=== PATIENT | female | born 1995 | race Caucasian/White ===

== ENCOUNTER 2017-11-05 13:59 | Outpatient (CLI) | payer MEDICAID ==
--- NOTE | 2017-11-05 19:24 | XRAY Report ---
DATE OF SERVICE: 11/05/2017 COMPLETE CERVICAL SPINE: 11/05/2017 CLINICAL INDICATION: Chronic neck pain. AP, lateral, oblique, odontoid views of the cervical spine demonstrate normal height of the vertebral bodies. There is reversal of the normal cervical lordosis. There is no evidence of fracture or subluxation. The prevertebral soft tissues are unremarkable. IMPRESSION: Reversal of the normal cervical lordosis. Otherwise normal cervical spine. TD: 11/05/2017 20:23
== END 2017-11-05 14:00 | disposition home or self-care (01) ==
LOC: DI 13:59
PROVIDERS: ATTEND Nurse Practitioner Family
DX: M54.2 Cervicalgia (principal)
CPT/HCPCS: 72050

== ENCOUNTER 2017-12-19 13:11 | Emergency (ER) | payer MEDICAID ==
[2017-12-19 13:48] LABS: BILIRUBIN,URINE NEGATIVE (NEGATIVE); GLUCOSE, URINE (UA) NEGATIVE (NEGATIVE); KETONES,URINE (UA) NEGATIVE (NEGATIVE); LEUKOCYTE ESTERASE, URINE NEGATIVE (NEGATIVE); NITRITE,URINE NEGATIVE (NEGATIVE); OCCULT BLOOD,URINE NEGATIVE (NEGATIVE); PROTEIN,URINE NEGATIVE (NEGATIVE); UROBILINOGEN,URINE 0.2 (NORMAL) E.U./dL (NORMAL)
[2017-12-19 13:50] LABS: CLARITY,URINE CLEAR (CLEAR); HCG UR QUAL NEGATIVE
--- NOTE | 2017-12-19 15:40 | ED Physician Documentation ---
History of Present Illness - Stated complaint Stated Complaint: Nausea/not sleeping - Chief complaint Chief Complaint: General - History obtained from History obtained from: Patient, Family - History of Present Illness Timing: How many days ago (3) Pain level max: 4 Pain level now: 3 Improved by: nothing Worsened by: nothing - Additonal information Additional information: 22 yo F with history of IBS and anxiety. Has had nausea without vomiting for the past 3 days. No fevers. No diarrhea, no constipation. No . Started nuvaring 12/03/17. States sexually active, but no changes in partners. No vaginal bleeding, discharge. LLQ abd pain. Similar symptoms a few years ago when she was diagnosed with IBS States had an injury in her L ankle/foot as a child and occasionally has swelling and tingling to the L foot. States yesterday her feet were red and swollen. normal today. also has a headache today. Similar to prior headaches. Gradual onset. Has not taken anything for this. Review of Systems Ten Systems: 10 systems reviewed and negative Constitutional: denies: Fever, Chills Ears: denies: Ear pain Nose: denies: Rhinorrhea / runny nose, Congestion Throat: denies: Sore throat Cardiac: denies: Chest pain / pressure Respiratory: denies: Cough, Wheezing GI: denies: Vomiting, Constipation, Diarrhea, Hematemesis : denies: Discharge (no itching, bleeding.), Now EGA Skin: denies: Rash Musculoskeletal: denies: Neck pain, Back pain Neurologic: reports: Headache (chronic and unchanged) PD PAST MEDICAL HISTORY - Past Medical History Past Medical History: Yes Psych: Anxiety, Panic attacks - Past Surgical History Past Surgical History: No - Present Medications Home Medications: Ambulatory Orders Medication Instructions Recorded Confirmed Cyclobenzaprine [Flexeril] 10 mg PO TID PRN #20 tablet 06/11/16 HYDROcod/ACETAM 5/325 [[place] 5/325] 1 ea PO Q6H PRN #6 tablet 06/11/16 Ibuprofen [Motrin] 400 mg PO Q6H PRN #30 tablet 06/11/16 Lidocaine Patch 5% [Lidoderm Patch] 1 each TOP DAILY PRN #10 patch 06/11/16 Hydrocodone/Acetaminophen 1 - 2 each PO Q6H PRN #10 tablet 12/19/17 [Hydrocodon-Acetaminophen 5-325] - Allergies Allergies/Adverse Reactions: Allergies Allergy/AdvReac Type Severity Reaction Status Date / Time No Known Drug Allergies Allergy Verified 06/11/16 17:46 - Social History Does the pt smoke?: Yes Smoking Status: Current every day smoker Does the pt drink ETOH?: No Does the pt have substance abuse?: No - Immunizations Immunizations are current?: Yes PD ED PE NORMAL - Vitals Vital signs reviewed: Yes - General General: Alert and oriented X 3, No acute distress - HEENT HEENT: Moist mucous membranes - Neck Neck: Supple, no meningeal sign - Cardiac Cardiac: RRR, Strong equal pulses - Respiratory Respiratory: No respiratory distress, Clear bilaterally - Abdomen Abdomen: Soft, Non distended, Other (mild TTP LLQ, no peritoneal signs. o/w normal exam.) - Female Female : Pt declined (does not want a pelvic exam today. 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, No motor deficit, No sensory deficit, Normal speech - Psych Psych: Normal mood, Normal affect Results - Vitals Vitals: Vital Signs - 24 hr 12/19/17 12/19/17 13:21 17:32 Temperature 36.2 C L 37.0 C Heart Rate 102 H 62 Respiratory 18 20 Rate Blood Pressure 147/90 H 155/94 H O2 Saturation 99 98 Oxygen O2 Source Room air - Labs Labs: Laboratory Tests 12/19/17 13:34 Urine Color YELLOW Urine Clarity CLEAR Urine pH 6.0 Ur Specific [place] 1.015 Urine Protein NEGATIVE Urine Glucose (UA) NEGATIVE Urine Ketones NEGATIVE Urine Occult Blood NEGATIVE Urine Nitrite NEGATIVE Urine Bilirubin NEGATIVE Urine Urobilinogen 0.2 (NORMAL) Ur Leukocyte Esterase NEGATIVE Ur Microscopic Review NOT INDICATED Urine Culture Comments NOT INDICATED Urine HCG, Qual NEGATIVE - Rads (name of study) pelvic US Radiology: Prelim report reviewed, EMP read contemporaneously, See rad report ( Normal) PD MEDICAL DECISION MAKING - ED course Complexity details: reviewed results, re-evaluated patient, considered differential, d/w patient, d/w family ED course: Patient is a 22-year-old female who presents to the emergency department with multiple complaints, the first is a headache that has been ongoing, this resolved in the emergency department after ibuprofen administration. The second is chronic inflammation in her bilateral feet that also improved. No evidence of cellulitis or infection. No evidence of fracture. The other complaint is lower abdominal pain, unclear etiology. Negative pelvic ultrasound. She does not want a pelvic examination today. She also refuses blood work. She does understand that this could lead to delay in diagnosis and accepts these risks. We will trial her on pain medication for the next 2-3 days and see how she progresses. She will return sooner if she worsens. Patient counseled regarding signs and symptoms for which I believe and urgent re -evaluation would be necessary. Patient with good understanding of and agreement to plan and is comfortable going home at this time This document was made in part using voice recognition software. While efforts are made to proofread this document, sound alike and grammatical errors may occur. Departure - Departure Disposition: 01 Home, Self Care Clinical Impression: Abdominal pain Qualifiers: Abdominal location: left lower quadrant Qualified Code(s): R10.32 - Left lower quadrant pain Condition: Good Instructions: ED Abdominal Pain Unkn Cause Follow-Up: Rosanna Amin ARNP [Primary Care Provider] - Within 3 Days Prescriptions: Hydrocodone/Acetaminophen [Hydrocodon-Acetaminophen 5-325] 1 - 2 each PO Q6H PRN #10 tablet PRN Reason: pain Comments: Return if you worsen. The cause of your symptoms is unclear today. If you fail to improve over the next 2-3 days, I would strongly recommend that you consider blood work as well as a pelvic exam and possible further imaging. Do not drink alcohol or drive while on narcotic pain medicine. Note that many narcotic pain relievers also contain tylenol/acetaminophen. Please ensure that your total dose of acetaminophen from all sources does not exceed 3 grams (3000mg) per day. You may constipated on this medication, take a stool softener such as "Colace" twice a day while you are on it. Also recommend a lbyg-vna-yxtrngc laxative such as senna or MiraLAX any day that you do not have a bowel movement. If you received narcotic pain medication in the emergency department, do not drive or operate machinery for the next 24 hours. Discharge Date/Time: 12/19/17 17:42
[2017-12-19] MEDS ORDERED: IBUPROFEN 800 MG TABLET PO STA (15:55)
--- NOTE | 2017-12-19 17:26 | Ultrasound Preliminary Report ---
Exam: US PELVIC NON OB W/DOPPLER IMPRESSION: Normal pelvic ultrasound. [facility] SITE ID: [id number]
--- NOTE | 2017-12-19 17:26 | Ultrasound Report ---
REVISED: REPORT ORIGINALLY SIGNED ON 12/19/2017@1726; ORDERS LINKED ON 2017 jll EXAM: PELVIC ULTRASOUND WITH DOPPLER EXAM DATE: 12/19/2017 05:02 PM. CLINICAL HISTORY: L pelvic pain x 3 days. COMPARISON: None. TECHNIQUE: Realtime transabdominal pelvic scan performed to identify the uterus and adnexa and as an overview of other pelvic structures, followed by transvaginal scan to provide greater detail of the uterus and adnexa, with static image documentation. Doppler images obtained. FINDINGS Uterus: 7 x 2.8 x 3.7 cm, volume 37.9 cc. Anteverted position. Normal overall size and echotexture. Masses: None. Endometrium: 6.2 mm. Normal. Cervix: Unremarkable. Right Ovary: 3.2 x 1.4 x 2.5 cm, volume 5.8 cc. Normal echotexture and blood flow. Left Ovary: 2.8 x 1.3 x 1.7 cm, volume 3.2 cc. Normal echotexture and blood flow. Free Fluid: None. Other: None. IMPRESSION: Normal pelvic ultrasound. [facility] Referring Provider Line: [phone] SITE ID: [id number]
[2017-12-19] MEDS ORDERED: HYDROcod/ACETAM 5/325 MG TABLET PO STA (17:29)
[2017-12-19 17:33] VITALS: BP 155/94
== END 2017-12-19 17:42 | disposition home or self-care (01) ==
LOC: ED 13:11
DX: R10.32 Left lower quadrant pain (principal); F17.200 Nicotine dependence, unspecified, uncomplicated
CPT/HCPCS: 76830; 76856; 81003; 81025; 93975; 99283; 99284; A9270; 80053; 81001; 83690; 85025; 87086

== ENCOUNTER 2018-12-30 09:00 | Emergency (ER) | payer MEDICAID ==
[2018-12-30] MEDS ORDERED: ONDANSETRON 4 MG/2 ML VIAL IVP STA (09:24)
[2018-12-30] MEDS ORDERED: SODIUM CHLORIDE 0.9% 1,000 ML IV ONE (09:24)
--- NOTE | 2018-12-30 09:27 | ED Physician Documentation ---
PD HPI ABD PAIN - Stated complaint Stated Complaint: ABD PX/VOMITING - Chief complaint Chief Complaint: Abd Pain - History obtained from History obtained from: Patient - History of Present Illness Timing - onset: How many weeks ago (more than one week) Timing - details: Gradual onset Quality: Cramping Location: LLQ Associated symptoms: Nausea Similar symptoms before: Diagnosis (History of IBS.) - Additional information Additional information: The patient is a 23-year-old female who presents with left lower quadrant abdominal pain. Her symptoms started more than 1 week ago, but have become more severe and more constant during the past 3 days. She describes waves of cramping abdominal pain. She has had nausea with dry heaves. She also reports chills, and episodic diarrhea. She denies dysuria. She has a history of inflammatory bowel syndrome, but denies history of similar symptoms in the past. Review of Systems Constitutional: reports: Chills Nose: denies: Congestion Throat: denies: Sore throat Cardiac: denies: Chest pain / pressure Respiratory: denies: Dyspnea, Cough GI: reports: Abdominal Pain, Nausea, Vomiting (dry heaves), Diarrhea (episodic) : denies: Dysuria Skin: denies: Rash Musculoskeletal: reports: Back pain (chronically). denies: Extremity pain Neurologic: denies: Headache PD PAST MEDICAL HISTORY - Past Medical History Cardiovascular: None Respiratory: None Neuro: None Endocrine/Autoimmune: None GI: Other (Inflammatory Bowel Syndrome) Psych: Anxiety, Panic attacks - Past Surgical History Past Surgical History: No - Present Medications Home Medications: Ambulatory Orders Medication Instructions Recorded Confirmed Ondansetron Odt [Zofran] 4 mg TL Q6H PRN #20 tablet 12/30/18 - Allergies Allergies/Adverse Reactions: Allergies Allergy/AdvReac Type Severity Reaction Status Date / Time No Known Drug Allergies Allergy Verified 12/30/18 09:09 - Social History Does the pt smoke?: Yes Smoking Status: Current every day smoker Does the pt drink ETOH?: No Does the pt have substance abuse?: No - Immunizations Immunizations are current?: Yes PD ED PE NORMAL - Vitals Vital signs reviewed: Yes (normal) - General General: Alert and oriented X 3, Well developed/nourished - HEENT HEENT: Atraumatic, Moist mucous membranes, Pharynx benign - Neck Neck: Supple, no meningeal sign, No adenopathy - Cardiac Cardiac: RRR, No murmur - Respiratory Respiratory: No respiratory distress, Clear bilaterally - Abdomen Abdomen: Normal bowel sounds, Soft, Other (Mild tenderness to palpation in the LLQ, without rebound or guarding.) - Back Back: No CVA TTP - Derm Derm: No rash - Extremities Extremities: No edema, No calf tenderness / cord - Neuro Neuro: Alert and oriented X 3, No motor deficit, Normal speech Results - Vitals Vitals: Vital Signs - 24 hr 12/30/18 12/30/18 12/30/18 09:06 12:29 15:41 Temperature 36.4 C L 36.7 C 36.5 C Heart Rate 75 65 60 Respiratory 14 16 16 Rate Blood Pressure 129/82 H 125/78 120/71 O2 Saturation 99 100 100 Oxygen O2 Source Room air - Labs Labs: Laboratory Tests 12/30/18 12/30/18 12/30/18 09:40 09:47 09:47 WBC 10.3 RBC 4.58 Hgb 14.2 Hct 41.4 MCV 90.4 MCH 31.1 H MCHC 34.4 RDW 12.1 Plt Count 211 MPV 8.7 Neut # (Auto) 6.8 H Lymph # (Auto) 2.8 [place] # (Auto) 0.5 Eos # (Auto) 0.0 Baso # (Auto) 0.1 Absolute Nucleated RBC 0.00 Nucleated RBC % 0.0 Manual Slide Review Indicated Sodium 129 L Potassium 3.8 Chloride 98 L Carbon Dioxide 22 Anion Gap 9.0 BUN 10 Creatinine 0.5 Estimated GFR (MDRD) 154 Glucose 92 Calcium 9.2 Total Bilirubin 0.7 AST 22 ALT 18 Alkaline Phosphatase 46 Total Protein 7.1 Albumin 4.3 Globulin 2.8 Albumin/Globulin Ratio 1.5 Lipase 34 HCG, Quant Urine Color YELLOW Urine Clarity CLEAR Urine pH 7.5 Ur Specific [place] 1.010 Urine Protein NEGATIVE Urine Glucose (UA) NEGATIVE Urine Ketones NEGATIVE Urine Occult Blood NEGATIVE Urine Nitrite NEGATIVE Urine Bilirubin NEGATIVE Urine Urobilinogen 0.2 (NORMAL) Ur Leukocyte Esterase NEGATIVE Ur Microscopic Review NOT INDICATED Urine Culture Comments NOT INDICATED Urine HCG, Qual POSITIVE 12/30/18 09:47 WBC RBC Hgb Hct MCV MCH MCHC RDW Plt Count MPV Neut # (Auto) Lymph # (Auto) [place] # (Auto) Eos # (Auto) Baso # (Auto) Absolute Nucleated RBC Nucleated RBC % Manual Slide Review Sodium Potassium Chloride Carbon Dioxide Anion Gap BUN Creatinine Estimated GFR (MDRD) Glucose Calcium Total Bilirubin AST ALT Alkaline Phosphatase Total Protein Albumin Globulin Albumin/Globulin Ratio Lipase HCG, Quant 25130.00 Urine Color Urine Clarity Urine pH Ur Specific [place] Urine Protein Urine Glucose (UA) Urine Ketones Urine Occult Blood Urine Nitrite Urine Bilirubin Urine Urobilinogen Ur Leukocyte Esterase Ur Microscopic Review Urine Culture Comments Urine HCG, Qual - Rads (name of study) CT abd/pelvis Radiology: Prelim report reviewed, EMP read contemporaneously, See rad report (1) No urinary tract stones or obstruction. 2) No acute inflammatory process demonstrated. 3) Mild nonspecific fundal endometrial fullness. Question normal variation versus endometrial polyp or fibroid. Prior pelvic ultrasound 12/19/2017 was unremarkable. Consider serum beta hCG to exclude early or pelvic ultrasound if clinically warranted.) pelvic U/S Radiology: See rad report (Single viable intrauterine at estimated gestational age 6 weeks 5 days, which is concordant with clinical dates. [place]- gestational hemorrhage 2.3 cm.) PD MEDICAL DECISION MAKING - ED course Complexity details: reviewed results, re-evaluated patient, considered differential, d/w patient, d/w family ED course: The patient's presentation with left lower quadrant abdominal pain is consistent with a newly diagnosed live intrauterine , estimated at 7 weeks gestation by ultrasound. The ultrasound also reveals a 2.3 cm. Gestational fluid collection, suggestive of hemorrhage. Because of the patient's history of inflammatory bowel syndrome, and a negative urine test, CT scan of the abdomen was initially performed. This revealed a thickened endometrial wall, without other CT abnormality. It should be noted that the patient's initial urine test was negative, but because of her missed menstrual period, history of a positive urine test at home, and the CT findings, a serum test was performed, revealing an elevated beta hCG above 65,000. I discussed the laboratory discrepancy with laboratory staff, who subsequently found that the negative urine test result was entered in error, and who then made a correction to the computer entry. Treatment in the emergency department included administration of morphine 4 mg IM and Zofran 4 mg sublingually. IV administration was not able to be a performed due to the patient's adamant refusal against IV placement. I discussed with her and her male plate hanger the results of the ultrasound, the importance of outpatient follow-up with OB, as well as potentially worrisome signs or symptoms that should prompt reevaluation in the emergency department. Departure - Departure Disposition: 01 Home, Self Care Clinical Impression: Vomiting of , First trimester Condition: Stable Instructions: ED Preg Morning Sickness Follow-Up: IRINA JUAN [Primary Care Provider] - [facility] [Provider Group] Prescriptions: Ondansetron Odt [Zofran] 4 mg TL Q6H PRN #20 tablet PRN Reason: Nausea / Vomiting Comments: You can use Tylenol as needed for pain. You can use Zofran as prescribed if needed for nausea. Drink plenty of fluids. Follow-up with hole digger operator within 2 weeks. Call to schedule appointment. Return to the emergency department if you develop persistent vomiting, increasing abdominal pain, or otherwise worsening symptoms. Discharge Date/Time: 12/30/18 15:42
[2018-12-30 09:48] LABS: BILIRUBIN,URINE NEGATIVE (NEGATIVE); GLUCOSE, URINE (UA) NEGATIVE (NEGATIVE); KETONES,URINE (UA) NEGATIVE (NEGATIVE); LEUKOCYTE ESTERASE, URINE NEGATIVE (NEGATIVE); NITRITE,URINE NEGATIVE (NEGATIVE); OCCULT BLOOD,URINE NEGATIVE (NEGATIVE); PH,URINE 7.5 PH (5.0-7.5); PROTEIN,URINE NEGATIVE (NEGATIVE); UROBILINOGEN,URINE 0.2 (NORMAL) E.U./dL (NORMAL)
[2018-12-30 09:49] LABS: CLARITY,URINE CLEAR (CLEAR)
[2018-12-30 10:00] LABS: BASOPHILS # (AUTO) 0.1 10^3/uL (0.0-0.1); BASOPHILS % (AUTO) 0.9 %; EOSINOPHILS % (AUTO) 0.2 %; HGB - HEMOGLOBIN 14.2 g/dL (12.0-16.0); LYMPHOCYTES # (AUTO) 2.8 10^3/uL (1.5-3.5); LYMPHOCYTES % (AUTO) 27.4 %; MEAN CORPUSCULAR HEMOGLOBIN 31.1 pg (27.0-31.0); MEAN CORPUSCULAR HGB CONC 34.4 g/dL (32.0-36.0); MEAN CORPUSCULAR VOLUME 90.4 fL (81.0-99.0); MEAN PLATELET VOLUME 8.7 fL (7.9-10.8); MONOCYTES # (AUTO) 0.5 10^3/uL (0.0-1.0); MONOCYTES % (AUTO) 5.1 %; NEUTROPHILS # (AUTO) 6.8 10^3/uL (1.5-6.6); NEUTROPHILS % (AUTO) 66.4 %; PLT - PLATELET COUNT 211 10^3/uL (130-450); RED BLOOD COUNT 4.58 10^6/uL (4.20-5.40); RED CELL DISTRIBUTION WIDTH 12.1 % (12.0-15.0); WHITE BLOOD COUNT 10.3 x10^3/uL (4.8-10.8)
[2018-12-30] MEDS ORDERED: ONDANSETRON ODT 4 MG TABLET TL STA (10:05)
[2018-12-30 10:06] LABS: ALBUMIN 4.3 g/dL (3.2-5.5); ALBUMIN/GLOBULIN RATIO 1.5 (1.0-2.2); BILIRUBIN,TOTAL 0.7 mg/dL (0.2-1.0); CALCIUM 9.2 mg/dL (8.5-10.3); CREATININE 0.5 mg/dL (0.4-1.0); TOTAL PROTEIN 7.1 g/dL (6.7-8.2)
--- NOTE | 2018-12-30 10:53 | CT Report ---
Reason: LLQ abd pain Procedure Date: 12/30/2018 Accession Number: [id number] / [id number] Procedure: CT - Abdomen/Pelvis WO CPT Code: FULL RESULT: EXAM: CT ABDOMEN AND PELVIS (CT KUB) EXAM DATE: 12/30/2018 10:25 AM. CLINICAL HISTORY: LLQ abd pain. COMPARISONS: PELVIC NON OB W/DOPPLER 12/19/2017 4:13 PM. TECHNIQUE: Routine axial helical CT imaging was performed through the abdomen and pelvis without IV contrast. Reconstructions: Coronal and sagittal. In accordance with CT protocol optimization, one or more of the following dose reduction techniques were utilized for this exam: automated exposure control, adjustment of mA and/or KV based on patient size, or use of iterative reconstructive technique. FINDINGS: Lung Bases: Unremarkable. Right Kidney/Ureter: No stones, hydronephrosis, or hydroureter. No perinephric fat stranding. Left Kidney/Ureter: No stones, hydronephrosis, or hydroureter. No perinephric fat stranding. Other Solid Organs: Noncontrast images of the solid organs are grossly unremarkable. Gallbladder/Bile Ducts: Unremarkable. Peritoneal Cavity: No free fluid, free air or amando adenopathy. Bowel is grossly unremarkable. Normal appendix. Pelvic Organs: No bladder stones or wall thickening. No adnexal abnormality evident on noncontrast CT. Mild nonspecific fundal endometrial fullness. Vasculature: Unremarkable. Other: None. IMPRESSION: 1. No urinary tract stones or obstruction. 2. No acute inflammatory process demonstrated. 3. Mild nonspecific fundal endometrial fullness. Question normal variation versus endometrial polyp or fibroid. Prior pelvic ultrasound 12/19/2017 was unremarkable. Consider serum beta hCG to exclude early or pelvic ultrasound if clinically warranted. [facility]
[2018-12-30] MEDS ORDERED: MORPHINE 2 MG/ML CARPUJECT IM STA (12:22)
--- NOTE | 2018-12-30 14:43 | Ultrasound Report ---
Reason: LLQ pain and HCG 65,000. Procedure Date: 12/30/2018 Accession Number: [id number] / [id number] Procedure: US - OB First Trimester CPT Code: FULL RESULT: EXAM: FIRST TRIMESTER OBSTETRIC ULTRASOUND (Less than 11 weeks) EXAM DATE: 12/30/2018 01:12 PM. CLINICAL HISTORY: LLQ pain and HCG 65,000. LMP: Unknown. COMPARISONS: None. TECHNIQUE: Transabdominal and transvaginal ultrasound examination with static image documentation. CLINICAL DATES: EGA 7 weeks 2 days with PEGGY 08/16/2019 based on LMP/ . ASSESSMENT: Gestational Sac: Single intrauterine. Mean gestational sac diameter: 19.8 mm = 6 weeks/3 days. Embryo: CRL (crown-rump length) 7.6 mm = 6 weeks/5 days. Cardiac activity: 115 beats per minute. Yolk sac: 2.1 mm. Amniotic fluid: Not accurately assessed at this gestational age. Early placenta: Not visible at this gestational age. Other: 2.3 x 0.7 x 2.2 perigestational fluid collection demonstrated. MATERNAL STRUCTURES: Uterus: Anteverted. Unremarkable. Cervix: Closed. Right Ovary/Adnexa: The ovary measures 3.1 x 2.1 x 2.7 cm, volume 9.2 cc. Unremarkable. Left Ovary/Adnexa: The ovary measures 2.4 x 1.6 x 1.4 cm, volume 2.8 cc. Unremarkable. Free Fluid: None. Other: None. IMPRESSION: 1. Single viable intrauterine at EGA 6 weeks 5 days with PEGGY 08/20/2019 based on crown-rump length, which is concordant with clinical dates. Perigestational hemorrhage 2.3 cm [facility]
[2018-12-30 15:41] VITALS: BP 120/71
[2018-12-30 16:06] LABS: HCG UR QUAL POSITIVE
== END 2018-12-30 15:42 | disposition home or self-care (01) ==
LOC: ED 09:00
DX: O21.0 Mild hyperemesis gravidarum (principal); Z3A.01 Less than 8 weeks gestation of pregnancy; F17.200 Nicotine dependence, unspecified, uncomplicated
CPT/HCPCS: 36415; 74176; 76801; 76817; 80053; 81003; 81025; 83690; 84702; 85025; 96372; 99283; Q0162; 81001; 87086

== ENCOUNTER 2020-11-08 09:01 | Inpatient (IN) | payer MEDICAID ==
[2020-11-08] MEDS ORDERED: METHYLERGONOVINE 0.2 MG/ML VIAL IM PRN (09:14)
[2020-11-08] MEDS ORDERED: ONDANSETRON 4 MG/2 ML VIAL IVP PRN (09:14)
[2020-11-08] MEDS ORDERED: fentaNYL 100 MCG/2 ML VIAL IVP PRN ×2 (09:14→13:43)
[2020-11-08] MEDS ORDERED: CARBOPROST TROMETHAMINE 250 MCG/ML AMP IM PRN (09:14)
[2020-11-08] MEDS ORDERED: OXYTOCIN 10 UNIT/ML VIAL IM PRN (09:14)
[2020-11-08] MEDS ORDERED: TRANEXAMIC ACID 1,000 MG in SODIUM CHLORIDE 0.9% 100ML 100 ML IV PRN (09:14)
[2020-11-08] MEDS ORDERED: OXYTOCIN/SODIUM CHLORIDE 500 ML IV PRN (09:14)
[2020-11-08] MEDS ORDERED: miSOPROStoL 200 MCG TABLET BC PRN (09:14)
[2020-11-08] MEDS ORDERED: LIDOCAINE-MPF 1% 30 ML VIAL ID PRN (09:14)
[2020-11-08] MEDS ORDERED: AMPICILLIN 2 GM in SODIUM CHLORIDE 0.9% MINIBAG 100 ML IV SCH ×2 (09:24→09:30)
[2020-11-08] MEDS ORDERED: OXYTOCIN 10 UNIT/ML VIAL ONE (09:30)
[2020-11-08] MEDS ORDERED: METHYLERGONOVINE 0.2 MG/ML VIAL ONE (09:30)
[2020-11-08] MEDS ORDERED: TRANEXAMIC ACID 1,000 MG/10 ML VIAL ONE (09:30)
[2020-11-08] MEDS ORDERED: OXYTOCIN/SODIUM CHLORIDE 500 ML IV ONE (09:30)
[2020-11-08] MEDS ORDERED: miSOPROStoL 200 MCG TABLET ONE (09:30)
[2020-11-08] MEDS ORDERED: CARBOPROST TROMETHAMINE 250 MCG/ML AMP IM ONE (09:31)
[2020-11-08 09:40] LABS: BASOPHILS % (AUTO) 0.4 %; EOSINOPHILS % (AUTO) 0.2 %; HGB - HEMOGLOBIN 11.7 g/dL (12.0-16.0); LYMPHOCYTES # (AUTO) 3.2 10^3/uL (1.5-3.5); LYMPHOCYTES % (AUTO) 29.1 %; MEAN CORPUSCULAR HEMOGLOBIN 24.7 pg (27.0-31.0); MEAN CORPUSCULAR HGB CONC 31.8 g/dL (32.0-36.0); MEAN CORPUSCULAR VOLUME 77.6 fL (81.0-99.0); MEAN PLATELET VOLUME 11.6 fL (7.9-10.8); MONOCYTES # (AUTO) 0.5 10^3/uL (0.0-1.0); MONOCYTES % (AUTO) 4.6 %; NEUTROPHILS # (AUTO) 7.2 10^3/uL (1.5-6.6); NEUTROPHILS % (AUTO) 65.4 %; PLT - PLATELET COUNT 206 10^3/uL (130-450); RED BLOOD COUNT 4.74 10^6/uL (4.20-5.40); RED CELL DISTRIBUTION WIDTH 15.4 % (12.0-15.0)
[2020-11-08] MEDS ORDERED: fentaNYL 100 MCG/2 ML VIAL ONE (09:44)
[2020-11-08] MEDS ORDERED: ROPIVACAINE 0.2% 200 MG/100 ML BAG EP ONE (09:44)
[2020-11-08 09:57] LABS: PLATELET ESTIMATE, MANUAL NORMAL (130-450,000) (NORMAL); PLATELET MORPHOLOGY NORMAL APPEARANCE (NORMAL); RBC MORPHOLOGY (MULTIPLE) NORMAL APPEARANCE (NORMAL)
[2020-11-08] MEDS ORDERED: LACTATED RINGERS 1,000 ML IV SCH ×3 (10:00→13:00)
--- NOTE | 2020-11-08 10:22 | ANESTHESIA ---
Pre-Anesthesia VS, & Labs - Diagnosis Active labor - Procedure vaginal delivery Height: 5 ft 8 in - NPO Other (labor) - Is Patient ?: Yes - Lab Results Current Lab Results: Laboratory Tests 11/08/20 09:35: WBC 11.0 H, RBC 4.74, Hgb 11.7 L, Hct 36.8 L, MCV 77.6 L, MCH 24.7 L, MCHC 31.8 L, RDW 15.4 H, Plt Count 206, MPV 11.6 H, Neut # (Auto) 7.2 H, Lymph # (Auto) 3.2, [place] # (Auto) 0.5, Eos # (Auto) 0.0, Baso # (Auto) 0.0, Absolute Nucleated RBC 0.00, Nucleated RBC % 0.0, Manual Slide Review Indicated, WBC Morphology NORMAL APPEARANCE, Platelet Estimate NORMAL (130-450,000), Platelet Morphology NORMAL APPEARANCE, RBC Morph Micro Appear NORMAL APPEARANCE Fish Bones: 11/08/20 09:35 Home Medications and Allergies Active Medications Carboprost Tromethamine (Carboprost Tromethamine 250 Mcg/Ml Amp) 250 mcg IM Q15M PRN PRN Reason: Step 4: Hemorrhage protocol Stop: 11/13/20 09:14 Fentanyl (Fentanyl 100 Mcg/2 Ml Vial) 50 mcg IVP Q1H PRN PRN Reason: PAIN Oxytocin/Sodium Chloride (Pitocin/Sodium Chloride) 500 mls @ 999 mls/hr IV PRN PRN; Protocol PRN Reason: POST- HEMORR PREVENTION Stop: 11/13/20 09:14 Tranexamic Acid 1,000 mg/ (Sodium Chloride) 110 mls @ 660 mls/hr IV .ONCE PRN PRN Reason: EBL >1200mL and within 3hr Stop: 11/13/20 09:14 Lactated Ringer's (Lr) 1,000 mls @ 150 mls/hr IV .Q6H40M [place] Ampicillin Sodium 2 gm/ Sodium (Chloride) 100 mls @ 100 mls/hr IV ONCE [place] Stop: 11/08/20 12:00 Ampicillin Sodium 1 gm/ Sodium (Chloride) 100 mls @ 200 mls/hr IV Q4H [place] Lidocaine HCl (Lidocaine-Mpf 1% 30 Ml Vial) 30 ml ID .ONCE PRN PRN Reason: PERINEAL REPAIR Stop: 11/13/20 09:14 Methylergonovine Maleate (Methylergonovine 0.2 Mg/Ml Vial) 0.2 mg IM .ONCE PRN PRN Reason: Step 2: Hemorrhage protocol Stop: 11/13/20 09:14 Misoprostol (Misoprostol 200 Mcg Tablet) 800 mcg BC .ONCE PRN PRN Reason: Step 3: Hemorrhage protocol Stop: 11/13/20 09:14 Ondansetron HCl (Ondansetron 4 Mg/2 Ml Vial) 4 mg IVP Q4H PRN PRN Reason: Nausea / Vomiting Oxytocin (Oxytocin 10 Unit/Ml Vial) 10 unit IM .ONCE PRN PRN Reason: Step one: If no IV access Stop: 11/13/20 09:14 Sodium Chloride (Sodium Chloride Flush 0.9% 10 Ml Syringe) 10 ml IVP PRN PRN PRN Reason: NEEDED PER PROVIDER ORDERS Sodium Chloride (Sodium Chloride Flush 0.9% 10 Ml Syringe) 10 ml IVP 0100,0900,1700 [place] Allergies/Adverse Reactions: Allergies Allergy/AdvReac Type Severity Reaction Status Date / Time No Known Drug Allergies Allergy Verified 12/30/18 09:09 Anes History & Medical History - Anesthetic History Anesthesia Complications: reports: No previous complications - Medical History Cardiovascular: reports: None Pulmonary: reports: None Gastrointestinal: reports: Other (Inflammatory Bowel Syndrome) Urinary: reports: None Neuro: reports: None Musculoskeletal: reports: Chronic back pain (stenosis, bulging disk) Endocrine/Autoimmune: reports: None Blood Disorders: reports: None Skin: reports: None Smoking Status: Current every day smoker Psychosocial: reports: No issues indicated History of Cancer?: No - Surgical History Gynecologic: Other (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
[2020-11-08] MEDS ORDERED: LIDOCAINE-PF 2% 10 ML AMP SUBQ ONE (10:39)
[2020-11-08] MEDS ORDERED: BUPIVACAINE 0.25% PF 30 ML VIAL SUBQ ONE (10:42)
[2020-11-08] MEDS ORDERED: LIDOCAINE 2%-EPI 1:100000 20 ML MDV SUBQ ONE (10:42)
[2020-11-08] MEDS ORDERED: LIDOCAINE MPF 2%-EPI 1:200000 20 ML VIAL ONE (10:45)
[2020-11-08] MEDS ORDERED: BUPIVACAINE 0.25% PF 30 ML VIAL ONE (10:45)
[2020-11-08] MEDS ORDERED: MIDAZOLAM 2 MG/2 ML VIAL ONE (11:14)
[2020-11-08] MEDS ORDERED: ONDANSETRON 4 MG/2 ML VIAL ONE (11:24)
[2020-11-08] MEDS ORDERED: ePHEDrine 50 MG/ML VIAL IVP ONE (11:27)
[2020-11-08] MEDS ORDERED: KETOROLAC 30 MG/ML VIAL ONE (11:58)
[2020-11-08] MEDS ORDERED: LACTATED RINGERS 1,000 ML IV ONE (12:05)
--- NOTE | 2020-11-08 12:15 | OPERATIVE REPORT ---
Operative Report - General Admit Date: 11/08/20 Procedure Date: 11/08/20 Planned Procedure: STAT PLTC/S Pre-Op Diagnosis: 39 weeks, bradycardia Procedure Performed: STAT PLTC/S Post Op Diagnosis: Same normal uterine vascularity - Procedure Note Primary Surgeon: Jefferson Mendieta MD Secondary Surgeon: Clarisa Vidal Anesthesia Provider: Ricardo Kinney CRNA Anesthesia Technique: Epidural Pathology: Placenta IV Fluids (mL): 1,300 Estimated Blood Loss (mL): 700 Urine Output (mL): 100 Indications: bradycardia
[2020-11-08] MEDS ORDERED: SODIUM CHLORIDE FLUSH 0.9% 10 ML SYRINGE IVP PRN (12:29)
[2020-11-08] MEDS ORDERED: diphenhydrAMINE 25 MG CAPSULE PO PRN (12:32)
[2020-11-08] MEDS: ACETAMINOPHEN 500 MG TABLET PO SCH ×2 (13:17→21:13)
[2020-11-08] MEDS: oxyCODONE 5 MG TABLET PO PRN ×3 (13:18→21:13)
[2020-11-08] MEDS ORDERED: NALOXONE 0.4 MG/ML VIAL IVP PRN (13:43)
[2020-11-08] MEDS ORDERED: HYDROmorphone 0.5 MG/0.5 ML SYRINGE IVP PRN (13:43)
[2020-11-08] MEDS ORDERED: MORPHINE 2 MG/ML CARPUJECT IVP PRN (13:43)
[2020-11-08] MEDS ORDERED: ATROPINE ABBOJECT 1 MG/10 ML SYRINGE IVP PRN (13:43)
[2020-11-08] MEDS ORDERED: AMPICILLIN 1 GM in SODIUM CHLORIDE 0.9% MINIBAG 100 ML IV SCH (14:00)
--- NOTE | 2020-11-08 14:27 | ANESTHESIA POST OP EVALUATION ---
Anesthesia Post Eval - Post Anesthesia Eval Vitals: Last Vital Signs Temp 36.2 C L 11/08/20 11:57 Pulse 80 11/08/20 12:25 Resp 16 11/08/20 12:25 BP 127/80 11/08/20 12:25 Pulse Ox 100 11/08/20 12:25 CV Function Including HR & BP: positive: Stable Pain Control: positive: Satisfactory Nausea & Vomiting: positive: Negative Mental Status: positive: Baseline Respiratory Status: Airway Patent Hydration Status: Satisfactory Anesthesia Complications: positive: None
[2020-11-08] MEDS: KETOROLAC 30 MG/ML VIAL IVP SCH ×2 (15:40→18:05)
[2020-11-08] MEDS ORDERED: SODIUM CHLORIDE FLUSH 0.9% 10 ML SYRINGE IVP SCH ×2 (17:00)
[2020-11-08] MEDS: HYDROmorphone 1 MG/ML CARPUJECT IVP PRN ×2 (18:23→23:00)
--- NOTE | 2020-11-08 20:18 | HISTORY & PHYSICAL EXAMINATION ---
DATE OF SERVICE: 11/08/2020 Physician: Jefferson Mendieta MD IDENTIFICATION: Patient is a 25-year-old, G3, P1, AB1 female. She states that she has an EDC of 14 November 2020; this makes her 39 weeks and 1 day. CHIEF COMPLAINT: Labor. HISTORY OF PRESENT ILLNESS: Patient states she has been avani off and on for the last week. These were occurring about every 10 minutes, last night they increased to every 7 minutes, and this morning they became very regular and very painful. She has been brought in by ambulance for evaluation. She has been seen at [facility] in [place], [place], for her entire OB care. We have at time of presentation no records. Historically, she gives a history of having had a post-delivery bleed roughly 2 days later. 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 PAST MEDICAL HISTORY: The patient denies any medical history. SURGICAL HISTORY: Positive for laparoscopy. ALLERGIES: NONE KNOWN. CURRENT MEDICATIONS: vitamins. The history was rather brief in its obtaining, as patient developed severe bradycardia which was down to the 80s and 90s. PHYSICAL EXAMINATION GENERAL: Well-developed, well-nourished, white female, in no acute distress. She has an epidural in place. HEART: Regular rate and rhythm without murmurs. LUNGS: Lung ojeda are clear without rales or wheezes. ABDOMEN: Gravid. She had initially external toco monitoring, but, because of difficulty maintaining heart rate/heart tone, a scalp electrode was placed. At time of placement, the cervix was 7 cm, 100% effaced, and about -1. There was no evidence of any membranes at time of examination, and the scalp electrode was placed directly on the head. Subsequent to this, the patient developed some drop in her baseline but was noted to have good variability; however, with time, she developed bradycardia, which was down first to the 90s, 80s, and finally to the 70s. At this point, a stat was called for. IMPRESSION: A 25-year-old G3, P1, AB1, female at 39 weeks and 2 days with bradycardia. The remainder of her history was unobtainable, as the chart from her previous OB care was not available. PLAN: Patient was consented both verbally and written for a STAT . This was performed. TD: 11/08/2020 18:11 POLO
[2020-11-08] MEDS: SODIUM CHLORIDE FLUSH 0.9% 10 ML SYRINGE IVP SCH (23:00)
[2020-11-09] MEDS: SODIUM CHLORIDE FLUSH 0.9% 10 ML SYRINGE IVP SCH ×2 (00:23→02:00)
[2020-11-09] MEDS: KETOROLAC 30 MG/ML VIAL IVP SCH ×2 (00:23→06:12)
[2020-11-09] MEDS: SODIUM CHLORIDE FLUSH 0.9% 10 ML SYRINGE IVP PRN ×5 (00:23→13:29)
[2020-11-09] MEDS: oxyCODONE 5 MG TABLET PO PRN ×5 (01:07→22:57)
[2020-11-09] MEDS: HYDROmorphone 1 MG/ML CARPUJECT IVP PRN ×3 (02:01→13:22)
[2020-11-09] MEDS: ACETAMINOPHEN 500 MG TABLET PO SCH ×3 (04:42→21:04)
[2020-11-09 05:59] LABS: BASOPHILS % (AUTO) 0.2 %; EOSINOPHILS % (AUTO) 0.2 %; HGB - HEMOGLOBIN 9.6 g/dL (12.0-16.0); LYMPHOCYTES # (AUTO) 2.9 10^3/uL (1.5-3.5); LYMPHOCYTES % (AUTO) 22.6 %; MEAN CORPUSCULAR HEMOGLOBIN 24.7 pg (27.0-31.0); MEAN CORPUSCULAR HGB CONC 30.5 g/dL (32.0-36.0); MEAN PLATELET VOLUME 11.6 fL (7.9-10.8); MONOCYTES # (AUTO) 0.7 10^3/uL (0.0-1.0); MONOCYTES % (AUTO) 5.2 %; NEUTROPHILS % (AUTO) 71.6 %; PLT - PLATELET COUNT 167 10^3/uL (130-450); RED BLOOD COUNT 3.89 10^6/uL (4.20-5.40); RED CELL DISTRIBUTION WIDTH 15.7 % (12.0-15.0); WHITE BLOOD COUNT 12.6 x10^3/uL (4.8-10.8)
[2020-11-09] MEDS ORDERED: polyethylene glycoL 3350 17 GM PACKET PO PRN (08:59)
--- NOTE | 2020-11-09 09:06 | PROVIDER PROGRESS NOTE ---
Subjective - General Admit Date: 11/08/20 Procedure Date: 11/08/20 Post Op Days: 1 Procedure Performed: STAT PLTS/C - Review of Systems Wound/Incisions: positive: Dressing dry and intact General: positive: No symptoms (C/O left burning incisional pain. Passing flatus breast feeding) Gastrointestinal: positive: Flatus Genitourinary: positive: No symptoms Objective - Patient Data Reviewed Vital Signs: Yes Vital Signs: Vital Signs x48h Temp Pulse Resp BP Pulse Ox 11/09/20 08:28 36.4 C L 90 20 134/75 H 99 11/09/20 04:28 36.6 C 86 18 126/81 H 98 11/09/20 03:00 64 96 11/09/20 01:38 78 16 99 Weight: Weight 11/07/20 11/08/20 11/09/20 23:59 23:59 23:59 Weight (kg) 97.069 kg Intake & Output: Intake and Output Totals x24h 11/07/20 11/08/20 11/09/20 23:59 23:59 23:59 Intake Total 1000 Output Total 1365 1450 Balance -365 -1450 - Lab Results Lab Results: 11/09/20 05:50 Other Lab Results: Lab Results x24hrs 11/09/20 11/08/20 11/08/20 Range/Units 05:50 09:35 09:35 WBC 12.6 H 11.0 H (4.8-10.8) x10^3/uL RBC 3.89 L 4.74 (4.20-5.40) 10^6/uL Hgb 9.6 L 11.7 L (12.0-16.0) g/dL Hct 31.5 L 36.8 L (37.0-47.0) % MCV 81.0 77.6 L (81.0-99.0) fL MCH 24.7 L 24.7 L (27.0-31.0) pg MCHC 30.5 L 31.8 L (32.0-36.0) g/dL RDW 15.7 H 15.4 H (12.0-15.0) % Plt Count 167 206 (130-450) 10^3/uL MPV 11.6 H 11.6 H (7.9-10.8) fL Neut # (Auto) 9.0 H 7.2 H (1.5-6.6) 10^3/uL Lymph # (Auto) 2.9 3.2 (1.5-3.5) 10^3/uL [place] # (Auto) 0.7 0.5 (0.0-1.0) 10^3/uL Eos # (Auto) 0.0 0.0 (0.0-0.7) 10^3/uL Baso # (Auto) 0.0 0.0 (0.0-0.1) 10^3/uL Absolute Nucleated RBC 0.00 0.00 x10^3/uL Nucleated RBC % 0.0 0.0 /100WBC Manual Slide Review Indicated WBC Morphology NORMAL APPEARANCE (NORMAL) Platelet Estimate NORMAL (130-450,000) (NORMAL) Platelet Morphology NORMAL APPEARANCE (NORMAL) RBC Morph Micro Appear NORMAL APPEARANCE (NORMAL) Blood Type O POSITIVE Blood Type Recheck Antibody Screen NEGATIVE Crossmatch IS Only See Detail 11/08/20 Range/Units 09:25 WBC (4.8-10.8) x10^3/uL RBC (4.20-5.40) 10^6/uL Hgb (12.0-16.0) g/dL Hct (37.0-47.0) % MCV (81.0-99.0) fL MCH (27.0-31.0) pg MCHC (32.0-36.0) g/dL RDW (12.0-15.0) % Plt Count (130-450) 10^3/uL MPV (7.9-10.8) fL Neut # (Auto) (1.5-6.6) 10^3/uL Lymph # (Auto) (1.5-3.5) 10^3/uL [place] # (Auto) (0.0-1.0) 10^3/uL Eos # (Auto) (0.0-0.7) 10^3/uL Baso # (Auto) (0.0-0.1) 10^3/uL Absolute Nucleated RBC x10^3/uL Nucleated RBC % /100WBC Manual Slide Review WBC Morphology (NORMAL) Platelet Estimate (NORMAL) Platelet Morphology (NORMAL) RBC Morph Micro Appear (NORMAL) Blood Type Blood Type Recheck O POSITIVE Antibody Screen Crossmatch IS Only - Current Medications Current Medications: Current Medications Generic Name Dose Route Start Last Admin Trade Name Freq PRN Reason Stop Dose Admin Acetaminophen 1,000 mg 11/08/20 13:00 11/09/20 04:42 Acetaminophen 500 Mg Tablet PO 1,000 mg Q8H GARFIELD Administration Hydromorphone HCl 1 mg 11/08/20 18:14 11/09/20 08:20 Hydromorphone 1 Mg/Ml Carpuject IVP 1 mg Q2HR PRN Administration PAIN Oxycodone HCl 5 mg 11/08/20 12:32 11/09/20 04:43 Oxycodone 5 Mg Tablet PO 5 mg Q4HR PRN Administration PAIN - Physical Exam Wound/Incisions: positive: Dressing dry and intact General Appearance: positive: No acute distress (eating) Respiratory: positive: Chest non-tender, No respiratory distress, Breath sounds nml Cardiovascular: positive: Regular rate & rhythm, No murmur Abdomen: positive: Non-tender, Nml bowel sounds, Mass Extremities: positive: Calf tenderness, Edy's sign/cords Impression/Plan - Problem List Problem List: POD # 1 progressing well.
--- NOTE | 2020-11-09 09:29 | OPERATIVE REPORT ---
DATE OF SERVICE: 11/08/2020 Physician: Jefferson Mendieta MD PREOPERATIVE DIAGNOSES: 39 weeks, bradycardia. POSTOPERATIVE DIAGNOSES: 39 weeks, bradycardia. PROCEDURE: Emergency primary low transverse section. SURGEON: Jefferson Mendieta MD CHECKER: Franchesca Diaz MD ANESTHESIA: DEB Escalera. ANESTHETIC: Epidural with IV augmentation. ESTIMATED BLOOD LOSS: 700 mL IV FLUIDS: 1300 mL URINE OUTPUT: 100 mL FINDINGS: Upon entering the abdominal cavity, there was a live male infant deep in the pelvis. The male had Apgars of 8 and 9. Upon careful inspection of the tubes and ovaries, they appear to be norm al. The right parametrium showed some enlarged veins, but no obvious AVMs. PROCEDURE: Because of bradycardia, patient was taken back to the operating room in a rapid fas hion. Oral consent for a was obtained, as well as a signed consent. Patient was prepped a nd draped in the usual fashion. Following a very short timeout, a Pfannenstiel incision was carried down through subcutaneous tissue to the fascia. The fascia was incised transversely, then using both blunt and sharp dissection, it was freed from the rectus abdominis. The peritoneum was entered high . Care was taken to avoid any injury to bowel or bladder. At this point, a low transverse uterine i ncision was accomplished on the uterus. There was minimal to no amniotic fluid encountered. The hea d of the infant was deep in the pelvis. The left arm came out of the incision, had to be reduced. Jerry Diaz was able to dislodge the head out of the pelvis, and the infant was brought up through th e incision. The scalp electrode, which was still in place, was clipped, and following this, the infa nt was noted to be vigorous. There was a good cry and so, for this reason, clamping the cord was del ayed for 60 seconds. Following this, it was clamped, divided, and the was handed to the nadia venegasian who was standing by. At this point, the placenta was delivered. The uterus was wrapped on the exterior with a moist lap, and cleansed in the internal portion with a dry lap. Upon inspecting the incision, there was evidenc e of a T, which went down toward the cervix. This was closed in double layer with a running locking suture of 0 Vicryl with an imbricating layer of #0 Vicryl. At this point, the low transverse uterine incision was closed utilizing a running locking suture of #0 Vicryl and an imbricating layer of #0 V icryl. There was evidence of some oozing at the left side incision; this was reinforced with a figur e-of-eight of 0 Vicryl. The incision was inspected, and no further bleeding was noted. The uterus w as tipped forward, the cul-de-sac was suctioned free of any clot. Estimated blood loss was noted to be at about 700 mL. The cul-de-sac was irrigated, the uterus delivered back in abdominal cavity; the gutters were likewise irrigated. Incision was inspected, and there was no evidence of any further b leeding. The peritoneum was closed utilizing 2-0 Vicryl. The rectus was reapproximated with [id number] of 2-0 Vicryl and inspected; there were small areas of bleeding, which were cauterized. The fascia w as closed utilizing a double loop of 0 PDS. Subcutaneous tissue was irrigated and noted to be free o f any bleeding, so the subcutaneous tissue was closed utilizing 2-0 Vicryl. The incision itself was closed using 4-0 Monocryl, with a wound VAC being placed. The patient tolerated the procedure well a nd was taken to recovery in stable condition. Sponge and needle counts correct. j TD: 11/08/2020 12:41
[2020-11-09] MEDS ORDERED: IRON DEXTRAN 1,000 MG in SODIUM CHLORIDE 0.9% 250 ML IV ONE (10:30)
[2020-11-09] MEDS: SIMETHICONE CHEW 80 MG TABLET PO SCH ×2 (12:03→17:20)
[2020-11-09] MEDS: DOCUSATE SODIUM 100 MG CAPSULE PO SCH ×2 (12:04→21:04)
[2020-11-09] MEDS: IBUPROFEN 800 MG TABLET PO SCH ×2 (13:17→21:05)
[2020-11-10] MEDS: oxyCODONE 5 MG TABLET PO PRN ×5 (02:53→21:06)
[2020-11-10] MEDS: IBUPROFEN 800 MG TABLET PO SCH ×4 (05:08→21:04)
[2020-11-10] MEDS: ACETAMINOPHEN 500 MG TABLET PO SCH ×3 (05:09→21:05)
[2020-11-10] MEDS: SIMETHICONE CHEW 80 MG TABLET PO SCH ×4 (10:26→21:04)
--- NOTE | 2020-11-10 16:42 | PROVIDER PROGRESS NOTE ---
Subjective - Prog Note Date Prog Note Date: 11/10/20 Prog Note Time: 16:40 - Subjective Subjective: Patient is up and ambulating, tolerating po. Pain well managed. Voiding. Minimal lochia. Infant doing well. Under obs for GBS exposure. Objective - Vital Signs/Intake & Output Reviewed Vital Signs: Yes Vital Signs: 98.1 123/72 76 Intake & Output: Intake & Output 11/07/20 11/08/20 11/09/20 11/10/20 23:59 23:59 23:59 23:59 Intake Total 1000 Output Total 1365 1450 Balance -365 -1450 - Objective General Appearance: positive: No acute distress Eyes Bilateral: positive: Normal inspection Respiratory: positive: No respiratory distress, Breath sounds nml Cardiovascular: positive: Regular rate & rhythm Abdomen: positive: Non-tender, No distention, Other (Soft and appropriately tender. ND. Wound vac in place.) Skin: positive: Color nml, Warm, Dry Extremities: positive: Non-tender, Nml appearance, Pedal edema (mild BLE edema) Neurologic/Psychiatric: positive: Oriented x3 - Lab Results Fish Bones: 11/09/20 05:50 Other Labs: Lab Results x24hrs 11/08/20 Range/Units 13:30 Coronavirus (PCR) NEGATIVE Assessment/Plan - Problem List (1) deliv NOS-unsp Impression: POD#2: s/p emergent LTCS Doing well. Meeting goals for discharge Under observation for GBS exposure Anticipate DC home in am Meds sent to [facility]
--- NOTE | 2020-11-10 16:46 | Discharge Plan ---
Discharge Plan Problem Reviewed?: Yes Disposition: Home, Self Care Condition: Good Prescriptions: Acetaminophen [Acetaminophen Extra Strength] 1,000 mg PO Q8H PRN #60 tablet PRN Reason: Pain Docusate Sodium 100Mg Capsule [Colace 100Mg Capsule] 100 - 200 mg PO BID PRN #60 capsule PRN Reason: Constipation Ibuprofen [Motrin] 600 mg PO Q6H PRN #60 tab PRN Reason: Pain oxyCODONE [Roxicodone] 2.5 - 5 mg PO Q4H PRN #24 tablet PRN Reason: Severe Pain Diet: Regular Activity Restrictions: Additional Comments Additional Instructions or Follow Up instructions: Nothing in the vagina for 6 weeks: No intercourse, tampons, douching Call for: -Fever greater than 100.5 -Pain that does not improve with pain medication -Heavy bleeding in which you are soaking a pad an hour for 2 hours in a row -Incision becomes hot, hard, red, starts to open, or leaks foul smelling fluid No lifting more than 10# for 4 [address] while on narcotics Ok to shower. Let water run over the incision. Do not soap, scrub, or apply lotion. Pat dry with a clean towel or stacey a [employer] chair. The surgical stickers will start to peel off and you can remove them when they do. Otherwise, the provider will remove them at your one week follow-up appointment. OK to use an unscented sanitary napkin or clean washcloth to keep the incision dry if the belly folds over the incision. No Smoking: If you smoke, Please STOP! Call for help. Follow-up with: Jefferson Mendieta MD [Provider Admit Priv/Credential] -
[2020-11-10] MEDS: DOCUSATE SODIUM 100 MG CAPSULE PO SCH (21:03)
[2020-11-11] MEDS: oxyCODONE 5 MG TABLET PO PRN ×4 (00:56→13:01)
[2020-11-11] MEDS: ACETAMINOPHEN 500 MG TABLET PO SCH ×2 (05:13→13:01)
[2020-11-11] MEDS: IBUPROFEN 800 MG TABLET PO SCH ×2 (05:13→13:01)
[2020-11-11] MEDS: SIMETHICONE CHEW 80 MG TABLET PO SCH (09:24)
--- NOTE | 2020-11-11 10:30 | PROVIDER PROGRESS NOTE ---
Subjective - Prog Note Date Prog Note Date: 11/11/20 Prog Note Time: 10:28 - Subjective Subjective: Patient continues to do well. Up and ambulating. Tolerating po. Pain well managed. Lochia minimal. BF going well. Ready for DC Objective - Vital Signs/Intake & Output Reviewed Vital Signs: Yes Vital Signs: Vital Signs x48h Temp Pulse Resp BP Pulse Ox 11/11/20 08:00 98.2 F 80 16 131/83 H 11/11/20 05:05 98.4 F 66 16 124/68 97 Intake & Output: Intake & Output 11/08/20 11/09/20 11/10/20 11/11/20 23:59 23:59 23:59 23:59 Intake Total 1000 Output Total 1365 1450 Balance -365 -1450 - Objective General Appearance: positive: No acute distress Neck: positive: Nml inspection Respiratory: positive: Breath sounds nml Cardiovascular: positive: Regular rate & rhythm Abdomen: positive: No distention, Other (S&NT/ND. FF below umbi. Wound vac sealed and CDI) Skin: positive: Color nml, Warm, Dry Extremities: positive: No pedal edema Neurologic/Psychiatric: positive: Oriented x3 - Lab Results Fish Bones: 11/09/20 05:50 Other Labs: Lab Results x24hrs 11/08/20 Range/Units 13:30 Coronavirus (PCR) NEGATIVE Assessment/Plan - Problem List (1) deliv NOS-unsp Impression: POD#3: Meeting goals for discharge Routine DC instructions given DC to home
--- NOTE | 2020-11-11 10:35 | DISCHARGE SUMMARY ---
Discharge Summary Admit Date: 11/08/20 Discharge Date: 11/11/20 Discharging Provider: Joe Primary Care Provider: Dr. Malik at [facility]- Primary OB Condition at Discharge: Good Discharge Disposition: Home, Self Care - DIAGNOSES Admission Diagnoses: IUP at 39+1 wga Active labor distress Discharge Diagnoses with Status of Each Condition: Same and delivery of term gestation via emergent - HPI History of Present Illness: Patient is a 25 yo at 39+1 wga who had been receving OB care at [facility]. Labor started and progressed rapidly. Patient did not feel she could make it to [place] for delivery and presented to Labor and Delivery. - HOSPITAL COURSE Hospital Course: Patient was admitted by Dr. Mendieta at 7 cm dilation. Membranes were ruptured at first assessment but timing of rupture is unclear. No meconium. There was difficulty monitoring heart tones and an FSE was placed. Tracing showed recurrent decels to the 70s. Decision was made to proceed with emergent C- section. Epidural had been in place and was dosed for surgery. Procedure was well tolerated and without complication. Weight 3175 with Apgars 8/9. Patient was GBS positive with unknown duration of exposure and was delivered without appropriate prophylaxis. Postoperative course was uncomplicated. Baby was observed for full 48 hours due to unknown duration of exposure to GBS prior to delivery without adequate prophylaxis. By POD#3, both mother and baby were meeting goals for discharge and were discharged to home. Rh positive and Rubella immune - ALLERGIES Allergies/Adverse Reactions: Allergies Allergy/AdvReac Type Severity Reaction Status Date / Time No Known Drug Allergies Allergy Verified 12/30/18 09:09 - MEDICATIONS Home Medications: Ambulatory Orders Medication Instructions Recorded Confirmed Ondansetron Odt [Zofran] 4 mg TL Q6H PRN #20 tablet 12/30/18 Acetaminophen [Acetaminophen Extra 1,000 mg PO Q8H PRN #60 tablet 11/10/20 Strength] Docusate Sodium 100Mg Capsule 100 - 200 mg PO BID PRN #60 capsule 11/10/20 [Colace 100Mg Capsule] Ibuprofen [Motrin] 600 mg PO Q6H PRN #60 tab 11/10/20 oxyCODONE [Roxicodone] 2.5 - 5 mg PO Q4H PRN #24 tablet 11/10/20 - LABS Result Diagrams: 11/09/20 05:50 - FOLLOW UP Follow Up: [address] Mendieta for wound check. - TIME SPENT Time Spent in Discharge (Minutes): 30
[2020-11-11 11:59] VITALS: BP 139/76
--- NOTE | 2020-11-11 13:09 | Labor Flowsheet ---
Labor Flowsheet Datetime Report Generated by CPN: 11/11/2020 13:09 Datetime: 11/08/2020 10:25 Pulse: 90 SpO2 (%): 100 LaborFlag: Labor Datetime: 11/08/2020 10:24 VITAL SIGNS NBP Sys/Stefanie/Mean (mmHg): 140 : 88 : 101 Datetime: 11/08/2020 10:16 UTERINE ACTIVITY Monitor Mode: Palpation Quality: Moderate Pattern: Normal: <= 5 Contractions in 10 Minutes Resting Tone (Palpate): Relaxed Contraction Comments: difficulty picking up contractions due to pt. positioning. ASSESSMENT A Monitor Mode: Internal Scalp Electrode Variability: Moderate 6-25 bpm Accelerations: 15X15 Decelerations: Early; Late Category: Category II Datetime: 11/08/2020 10:14 Comments: FHR 120's then change in baseline to 110's, MD aware. decelerations down to 80's, Pt. turned side to side, LR Bolus given, O2 10l via face mask started Provider called Datetime: 11/08/2020 10:05 Membrane Status: Ruptured Membranes Rupture Method: Artificial Amniotic Fluid Amount: None Patient Care Comments: electrode placed by Dr. Mendieta Datetime: 11/08/2020 10:02 VAGINAL EXAM Dilatation (cm): 7.0 Effacement (%): 100 Station: -2 Exam by: Geim Datetime: 11/08/2020 10:01 Monitor Interventions for UA: Sunol Adjusted PATIENT CARE Patient Position/Activity: Left Tilt Datetime: 11/08/2020 09:58 Actions for Decelerations: Side to Side; Oxygen Applied; IV Bolus; Blood Pressure; Provider N otified COMMUNICATION Communication: Provider at Bedside Provider Notified (Name): Geim Communication Comments: Provider called to BS Datetime: 11/08/2020 09:55 Anesthesia Comments: right tilt, laying back in bed Datetime: 11/08/2020 09:49 ANESTHESIA Epidural Procedure: Test Dose Datetime: 11/08/2020 09:39 Frequency (min): 2-5 Duration (sec): 60 FHR Baseline Rate : 120 Datetime: 11/08/2020 09:38 Monitor Interventions for FHR: Ultrasound Adjusted Datetime: 11/08/2020 09:34 MEDICATIONS Medication Comments: LR
== END 2020-11-11 13:04 | disposition home or self-care (01) | DRG 788 ==
LOC: WFO 09:01 → FBP 09:08 → WFO 09:13 → FBP 09:14
PROVIDERS: ADMIT Obstetrics & Gynecology; ATTEND Obstetrics & Gynecology
PROC: 10907ZC Drainage of Amniotic Fluid, Therapeutic from Products of Conception, Via Natural or Artificial Opening (ICD-10-PCS; 2020-11-08)
PROC: 10H073Z Insertion of Monitoring Electrode into Products of Conception, Via Natural or Artificial Opening (ICD-10-PCS; 2020-11-08)
PROC: 10D00Z1 Extraction of Products of Conception, Low, Open Approach (ICD-10-PCS; principal; 2020-11-08 10:45)
DX: O76 Abnormality in fetal heart rate and rhythm complicating labor and delivery (principal); O99.824 Streptococcus B carrier state complicating childbirth; Z37.0 Single live birth; O71.81 Laceration of uterus, not elsewhere classified; O99.334 Smoking (tobacco) complicating childbirth; Z3A.39 39 weeks gestation of pregnancy; Z87.59 Personal history of other complications of pregnancy, childbirth and the puerperium
CPT/HCPCS: 36415; 85025; 86850; 86900; 86901; 86920; 87635; 99213; A9270; J1170; J1750; J7120

== ENCOUNTER 2020-11-13 10:41 | Emergency (ER) | payer MEDICAID ==
--- NOTE | 2020-11-13 12:25 | ED Physician Documentation ---
PD HPI ABD PAIN - Stated complaint Stated Complaint: CONSTIPATION - Chief complaint Chief Complaint: Abd Pain - History obtained from History obtained from: Patient - History of Present Illness Timing - onset: How many days ago (5) Timing - duration: Days (5) Timing - details: Gradual onset, Still present Quality: Cramping, Pain (mild) Location: All over / everywhere Improved by: BM Associated symptoms: Constipation. No: Nausea, Vomiting Similar symptoms before: Has not had sx before Recently seen: Surgery - Additional information Additional information: 25-year-old female who is 5 days has not had a bowel movement in 5 days. She did have a section and she has been able to get stool out this morning by disimpacting herself and she is still getting some liquid coming out around that and still feels that she has more stool in place. She does not have significant pain and she states that her incision seems to be healing well and she has no other specific complaints. Review of Systems Constitutional: denies: Fever Eyes: denies: Decreased vision Ears: denies: Ear pain Nose: denies: Congestion Throat: denies: Sore throat Respiratory: denies: Cough GI: reports: Abdominal Pain, Constipation. denies: Nausea, Vomiting : denies: Dysuria, Frequency PD PAST MEDICAL HISTORY - Past Medical History Past Medical History: Yes Cardiovascular: None Respiratory: None Neuro: None Endocrine/Autoimmune: None GI: Other MEDICAL LABORATORY MANAGER: None : None HEENT: None Psych: Anxiety, Panic attacks Musculoskeletal: Chronic back pain Derm: None - Past Surgical History Past Surgical History: Yes /MEDICAL LABORATORY MANAGER: section, Other - Present Medications Home Medications: Ambulatory Orders Medication Instructions Recorded Confirmed Ondansetron Odt [Zofran] 4 mg TL Q6H PRN #20 tablet 12/30/18 11/13/20 Acetaminophen [Acetaminophen Extra 1,000 mg PO Q8H PRN #60 tablet 11/11/20 11/13/20 Strength] Docusate Sodium 100Mg Capsule 100 - 200 mg PO BID PRN #60 capsule 11/11/20 11/13/20 [Colace 100Mg Capsule] Ibuprofen [Motrin] 600 mg PO Q6H PRN #60 tab 11/11/20 11/13/20 oxyCODONE [Roxicodone] 2.5 - 5 mg PO Q4HR PRN 11/13/20 11/13/20 - Allergies Allergies/Adverse Reactions: Allergies Allergy/AdvReac Type Severity Reaction Status Date / Time No Known Drug Allergies Allergy Verified 11/13/20 11:05 - Social History Does the pt smoke?: No Smoking Status: Former smoker Does the pt drink ETOH?: No Does the pt have substance abuse?: No - Immunizations Immunizations are current?: Yes PD ED PE NORMAL - Vitals Vital signs reviewed: Yes (hypertensive mild ) - General General: Alert and oriented X 3, No acute distress, Well developed/nourished - HEENT HEENT: Atraumatic, PERRL, EOMI - Neck Neck: Supple, no meningeal sign - Respiratory Respiratory: No respiratory distress - Abdomen Abdomen: Normal bowel sounds, Soft, Other (surgical dressing in place with wound vac that is empty. Minimal tenderness ) - Rectal Rectal: Other (with Oc as a chief security and safety officer the rectum is examined. There are no hemmorrhoids or inflamation. The rectal tone is normal and there is soft stool in the vault. ) - Back Back: No CVA TTP, No spinal TTP - Derm Derm: Normal color, Warm and dry, No rash - Extremities Extremities: No deformity, No edema - Neuro Neuro: Alert and oriented X 3, firearms inspector 2-12 intact, No motor deficit, No sensory deficit, Normal speech Eye Opening: Spontaneous Motor: Obeys Commands Verbal: Oriented GCS Score: 15 - Psych Psych: Normal mood, Normal affect Results - Vitals Vitals: Vital Signs - 24 hr 11/13/20 11/13/20 11/13/20 10:50 11:05 13:12 Temperature 36.4 C L 37 C 37.2 C Heart Rate 94 94 85 Respiratory 16 18 18 Rate Blood Pressure 138/82 H 144/82 H 140/87 H O2 Saturation 97 98 97 11/13/20 14:23 Temperature 36.4 C L Heart Rate 84 Respiratory 18 Rate Blood Pressure 130/71 O2 Saturation 98 Oxygen O2 Source Room air PD MEDICAL DECISION MAKING - ED course Complexity details: considered differential, d/w patient ED course: 25y/o female 5 days post is constipated and has soft stool in the vault. She is administered an enema. She requires a second higher enema and this is successful. Departure - Departure Disposition: 01 Home, Self Care Clinical Impression: Constipation Qualifiers: Constipation type: unspecified constipation type Qualified Code(s): K59.00 - Constipation, unspecified Condition: Stable Instructions: ED Constipation Follow-Up: Margarito Malik MD [Primary Care Provider] - Discharge Date/Time: 11/13/20 14:31
[2020-11-13 14:24] VITALS: BP 130/71
== END 2020-11-13 14:31 | disposition home or self-care (01) ==
LOC: ED 10:41
DX: O99.63 Diseases of the digestive system complicating the puerperium (principal); K59.00 Constipation, unspecified; Z87.891 Personal history of nicotine dependence
CPT/HCPCS: 99282; 99284

== ENCOUNTER 2020-11-15 08:00 | Outpatient (CLI) | payer MEDICAID | END 2020-11-15 23:59 | disposition home or self-care (01) | LOC: LAB.R 08:00 | PROVIDERS: ATTEND Obstetrics & Gynecology | DX: R30.0 Dysuria (principal) | CPT/HCPCS: 87086 ==

== ENCOUNTER 2021-05-27 08:00 | Outpatient (CLI) | payer MEDICAID | END 2021-05-27 23:59 | disposition home or self-care (01) | LOC: LAB.S 08:00 | PROVIDERS: ATTEND Emergency Medicine | DX: R53.83 Other fatigue (principal); B34.9 Viral infection, unspecified; Z20.822 Contact with and (suspected) exposure to COVID-19 ==

== ENCOUNTER 2022-06-18 14:18 | Outpatient (CLI) | payer MEDICAID ==
--- NOTE | 2022-06-18 16:40 | Ultrasound Report ---
PROCEDURE: Pelvic w/Transvaginal INDICATIONS: PELVIC PAIN TECHNIQUE: Real-time scanning was performed of the pelvic organs, with image documentation. Additional endovagi nal scanning was necessary due to incomplete visualization of the adnexal and endometrial structures by transabdominal scanning. COMPARISON: None. FINDINGS: Uterus: Uterus is anteverted and normal in size at 8.2 x 3.9 x 4.2 cm. The myometrium is homogeneou s. The endometrium measures 6.6 mm in combined thickness. No focal uterine mass Ovaries: The right ovary measures 3.0 x 2.0 x 3.4 cm, with a calculated ovarian volume of 10.7 cc. The left ovary measures 3.2 x 1.9 x 3.1 cm, with a calculated ovarian volume of 9.9 cc. The ovaries have a normal sonographic appearance. Less than 12 follicles can be seen in each ovary. No adnexal masses are seen. Other: No pathologic free abdominal or pelvic fluid. IMPRESSION: No explanation for uterine bleeding. Reviewed by: Humera Emanuel MD on 06/18/2022 4:39 PM PDT Approved by: Humera Emanuel MD on 06/18/2022 4:39 PM PDT Station ID: [id number]
== END 2022-06-18 14:19 | disposition home or self-care (01) ==
LOC: DI 14:18
PROVIDERS: ATTEND Obstetrics & Gynecology
DX: N93.9 Abnormal uterine and vaginal bleeding, unspecified (principal); R10.2 Pelvic and perineal pain

== ENCOUNTER 2022-08-14 09:42 | Outpatient (CLI) | payer MEDICAID ==
--- NOTE | 2022-08-14 11:48 | XRAY Report ---
PROCEDURE: Thoracic Spine 2 View INDICATIONS: Back pain. TECHNIQUE: 2 views of the thoracic spine were acquired. COMPARISON: None. FINDINGS: Bones: No fractures or dislocations. No suspicious bony lesions. 12 pairs of ribs are noted, and a ppear intact where visualized. 12th ribs appear diminutive. Possible minimal degenerative changes of the thoracic spine with suggestion of disc height loss and endplate spurring at scattered levels. Soft tissues: No paravertebral stripe thickening. IMPRESSION: No thoracic spine fracture visualized radiographically. Reviewed by: Antoine Francis MD on 08/14/2022 11:47 AM PDT Approved by: Antoine Francis MD on 08/14/2022 11:47 AM PDT Station ID: [id number]
[2022-08-14 14:32] LABS: BASOPHILS % (AUTO) 0.4 %; EOSINOPHILS # (AUTO) 0.1 10^3/uL (0.0-0.7); HCT - HEMATOCRIT 41.7 % (37.0-47.0); HGB - HEMOGLOBIN 13.5 g/dL (12.0-16.0); LYMPHOCYTES # (AUTO) 2.4 10^3/uL (1.5-3.5); LYMPHOCYTES % (AUTO) 21.6 %; MEAN CORPUSCULAR HEMOGLOBIN 28.9 pg (27.0-31.0); MEAN CORPUSCULAR HGB CONC 32.4 g/dL (32.0-36.0); MEAN CORPUSCULAR VOLUME 89.3 fL (81.0-99.0); MEAN PLATELET VOLUME 11.7 fL (7.9-10.8); MONOCYTES # (AUTO) 0.4 10^3/uL (0.0-1.0); NEUTROPHILS % (AUTO) 72.6 %; PLT - PLATELET COUNT 220 10^3/uL (130-450); RED BLOOD COUNT 4.67 10^6/uL (4.20-5.40)
[2022-08-14 14:52] LABS: ALBUMIN 3.9 g/dL (3.2-5.5); ALBUMIN/GLOBULIN RATIO 1.3 (1.0-2.2); BILIRUBIN,TOTAL 0.5 mg/dL (0.2-1.0); CALCIUM 9.7 mg/dL (8.5-10.3); CREATININE 0.8 mg/dL (0.4-1.0); POTASSIUM 4.3 mmol/L (3.5-5.0)
[2022-08-14 15:02] LABS: THYROID STIMULATING HORMONE 1.5 uIU/mL (0.34-5.60)
== END 2022-08-14 09:43 | disposition home or self-care (01) ==
LOC: DI.S 09:42
PROVIDERS: ATTEND Registered Nurse
DX: M54.6 Pain in thoracic spine (principal); Z79.899 Other long term (current) drug therapy; Z13.29 Encounter for screening for other suspected endocrine disorder
CPT/HCPCS: 36415; 80053; 80175; 84443; 85025

== ENCOUNTER 2022-10-21 09:31 | Outpatient (CLI) | payer MEDICAID ==
--- NOTE | 2022-10-21 13:01 | Ultrasound Report ---
LIMITED ULTRASOUND OF LEFT BREAST: 10/21/2022 CLINICAL: Palpable left breast lump and focal pain. No prior exams were available for comparison. Color flow and real-time ultrasound of the left breast 1 o'clock region were performed on the areas of interest. Chiu scale images of the real-time examination were reviewed. There is a 0.7 cm x 0.7 cm x 0.3 cm mass in the left breast at 1 o'clock anterior depth. This mass i s hypoechoic with fatty hilum. This correlates as palpated. Color flow imaging demonstrates that th ere is no vascularity present. IMPRESSION: BENIGN There is no sonographic evidence of malignancy. The 0.7 cm x 0.7 cm x 0.3 cm mass in the left breast likely represents a lymph node and is benign. C linical follow-up recommended. This exam was interpreted at Station ID: [id number]. Electronically Signed By: Mónica Lazo M.D. lk/:10/21/2022 12:55:34 Entry: - 10/21/2022 12:55:34 Ultrasound BI-RADS: 2 Benign BI-RADS CATEGORY: (2) - 2 Unspecified - other recall n/a LATERALITY: (B)
== END 2022-10-21 09:32 | disposition home or self-care (01) ==
LOC: DI 09:31
PROVIDERS: ATTEND Obstetrics & Gynecology
DX: N64.4 Mastodynia (principal); N63.21 Unspecified lump in the left breast, upper outer quadrant

== ENCOUNTER 2022-11-27 09:52 | Outpatient (CLI) | payer MEDICAID ==
[2022-11-27 14:25] LABS: BASOPHILS % (AUTO) 0.5 %; EOSINOPHILS # (AUTO) 0.1 10^3/uL (0.0-0.7); HGB - HEMOGLOBIN 12.9 g/dL (12.0-16.0); LYMPHOCYTES # (AUTO) 2.7 10^3/uL (1.5-3.5); LYMPHOCYTES % (AUTO) 44.5 %; MEAN CORPUSCULAR HEMOGLOBIN 28.2 pg (27.0-31.0); MEAN CORPUSCULAR HGB CONC 32.3 g/dL (32.0-36.0); MEAN CORPUSCULAR VOLUME 87.3 fL (81.0-99.0); MEAN PLATELET VOLUME 10.8 fL (7.9-10.8); MONOCYTES # (AUTO) 0.3 10^3/uL (0.0-1.0); MONOCYTES % (AUTO) 4.7 %; NEUTROPHILS # (AUTO) 2.9 10^3/uL (1.5-6.6); NEUTROPHILS % (AUTO) 49.1 %; PLT - PLATELET COUNT 229 10^3/uL (130-450); RED BLOOD COUNT 4.58 10^6/uL (4.20-5.40); RED CELL DISTRIBUTION WIDTH 13.1 % (12.0-15.0)
[2022-11-27 15:03] LABS: ALBUMIN 3.8 g/dL (3.2-5.5); ALBUMIN/GLOBULIN RATIO 1.3 (1.0-2.2); BILIRUBIN,TOTAL 0.3 mg/dL (0.2-1.0); CALCIUM 9.7 mg/dL (8.5-10.3); POTASSIUM 4.7 mmol/L (3.5-5.0); TOTAL PROTEIN 6.7 g/dL (6.7-8.2)
[2022-11-27 15:15] LABS: CREATININE 0.6 mg/dL (0.4-1.0)
== END 2022-11-27 09:53 | disposition home or self-care (01) ==
LOC: LAB.S 09:52
PROVIDERS: ATTEND Internal Medicine
DX: R10.9 Unspecified abdominal pain (principal); R11.0 Nausea
CPT/HCPCS: 36415; 80053; 82150; 83690; 85025

== ENCOUNTER 2022-12-06 08:43 | Outpatient (CLI) | payer MEDICAID ==
[2022-12-06] MEDS ORDERED: DIATRIZOATE MEGLU/DIATRIZO SOD 30 ML BOTTLE PO ONE ×2 (08:50→11:04)
[2022-12-06] MEDS ORDERED: iohexoL-300 100 ML VIAL ONE (08:50)
[2022-12-06 10:37] LABS: HCG UR QUAL NEGATIVE
[2022-12-06] MEDS ORDERED: iohexoL-300 100 ML VIAL IVP ONE (11:03)
--- NOTE | 2022-12-06 11:11 | CT Report ---
PROCEDURE: ABDOMEN/PELVIS W INDICATIONS: ABD PAIN CONTRAST: 100ml omni 300 TECHNIQUE: After the administration of IV and oral contrast, 5 mm thick sections acquired from the diaphragms to the symphysis. 5 mm thick coronal and sagittal reformats were acquired. For radiation dose reducti on, the following was used: automated exposure control, adjustment of mA and/or kV according to milton ent size. COMPARISON: 12/30/2018. Pelvic ultrasound dated 06/18/2022 FINDINGS: Image quality: Excellent. ABDOMEN: Lung bases: Lung bases are clear. Heart size is normal. Solid organs: Liver and spleen are normal in size and enhancement. Gallbladder is within normal khoury its. Biliary system is non dilated. Pancreas enhances normally. No adrenal nodules. Kidneys demon strate normal size and enhancement, without hydronephrosis. Peritoneum and bowel: Bowel loops demonstrate normal wall thickness and caliber. No free fluid or a ir. Appendix is visualized and is within normal limits. No abscess collection. Nodes and vessels: No retroperitoneal or mesenteric adenopathy by size criteria. Aorta and inferior vena cava are normal in size. Miscellaneous: No ventral hernias. PELVIS: Genitourinary: Bladder wall thickness is normal. Miscellaneous: No inguinal hernias or adenopathy. No gross abnormality is seen in uterus and bilate ral ovaries. Possible small bilateral ovarian cysts are seen. Bones: No suspicious bony lesions. No vertebral body compression fractures. IMPRESSION: 1. No acute inflammatory process is seen in abdomen or pelvis. No free fluid of free air. Normal appe ndix. No bowel obstruction or abnormal bowel wall thickening. 2. Suggestion of small bilateral ovarian cysts. 3. No renal stones or hydronephrosis. Reviewed by: Donnell Stokes MD on 12/06/2022 11:10 AM PST Approved by: Donnell Stokes MD on 12/06/2022 11:10 AM PST Station ID: [id number]
== END 2022-12-06 08:44 | disposition home or self-care (01) ==
LOC: DI 08:43
PROVIDERS: ATTEND Internal Medicine
DX: R10.9 Unspecified abdominal pain (principal); R11.0 Nausea
CPT/HCPCS: 74177; 81025; Q9963; Q9967

== ENCOUNTER 2023-06-11 09:40 | Outpatient (CLI) | payer MEDICAID ==
--- NOTE | 2023-06-11 13:17 | XRAY Report ---
PROCEDURE: Foot 3 View RT INDICATIONS: RIGHT FOOT INJURY TECHNIQUE: 3 views of the foot were acquired. COMPARISON: None. FINDINGS: Bones: No fractures or dislocations. No suspicious bony lesions. Soft tissues: No suspicious soft tissue calcifications or masses. No radiopaque foreign body detec alexander. IMPRESSION: No acute osseous abnormality. No radiopaque foreign body detected. Reviewed by: Kami Mcpherson MD on 06/11/2023 1:16 PM PDT Approved by: Kami Mcpherson MD on 06/11/2023 1:16 PM PDT Station ID: [id number]
== END 2023-06-11 23:59 | disposition home or self-care (01) ==
LOC: DI.S 09:40
PROVIDERS: ATTEND Emergency Medicine
DX: S91.331A Puncture wound without foreign body, right foot, initial encounter (principal)